=== PATIENT | female | born 1985 | race Caucasian/White ===

== ENCOUNTER 2020-10-21 19:11 | Emergency (ER) | payer OTHER ==
[~2020-10-21 19:11] MED LIST: BREO ELLIPTA 11 EACH INH; CLARITIN 10MG T10 MG PO; DEPO-PROVE150 MG/11 IM; FLONASE 0.05% N16 GM; KLONOPIN TAB 00.5 MG PO; MOBIC15 MG PO; NORCO 10-325 T1 EACH PO; SYNTHROID25 MCG PO; TOPAMAX50 MG PO; TRAZODONE HCL100 MG PO; VENLAFAXINE HCL75 MG PO
== END 2020-10-21 19:41 | disposition left against medical advice (07) ==
LOC: ER1 19:11
DX: G43.909 Migraine, unspecified, not intractable, without status migrainosus (principal); Z53.21 Procedure and treatment not carried out due to patient leaving prior to being seen by health care provider

== ENCOUNTER → 2021-05-10 | Outpatient (CLI) | payer OTHER | LOC: RAD 16:02 | DX: R07.81 Pleurodynia (principal) | CPT/HCPCS: 71047 ==